=== PATIENT | male | born 1965 | race Asian ===

== ENCOUNTER 2019-05-02 08:12 | Day surgery (SDC) | payer OTHER ==
[~2019-05-02] VITALS: Ht 154.9 cm; Wt 57.0 kg
[2019-05-02] MEDS ORDERED: BENAZEPRIL (08:48)
[2019-05-02] MEDS ORDERED: METFORMIN (08:48)
[2019-05-02] MEDS ORDERED: ATORVASTATIN (08:48)
[2019-05-02] MEDS ORDERED: GLIPIZIDE (08:48)
[2019-05-02 09:03] VITALS: Ht 154.9 cm; Wt 57.0 kg
[2019-05-02 09:21] VITALS: BP 122/173; PULSE 69; RESP 16
--- NOTE | 2019-05-02 09:21 | PREAC ---
Date/Time of Note Date/Time of Note DATE: 05/02/19 TIME: 09:18 Anesthesia Eval and Record Evaluation Time Pre-Procedure Interview DATE: 05/02/19 TIME: 09:18 Age 54 Sex male NPO: 8 hrs Preoperative diagnosis screening Planned procedure colonoscopy Past Medical History Past Medical History: Includes Cardio: HTN, Dyslipidemia Endo: Diabetes Surgery & Anesthesia Issues No known issue Meds Anticoagulation: No Beta Pat within 24 hr: No Reason Beta Pat not given: Pt. not on B-Pat Reported Medications [Atorvastatin] No Conflict Check 05/02/19 [Benazepril] No Conflict Check 05/02/19 [Glipizide] No Conflict Check 05/02/19 [Metformin] No Conflict Check 05/02/19 Meds reviewed: Yes Allergies Coded Allergies: No Known Allergy (Unverified , 05/02/19) Allergies Reviewed: Yes Labs/Studies Labs Reviewed: Reviewed by anesthesiologist test: N/A Pre-procedure Exam Airway: Adequate mouth opening, Adequate thyromental dist Mallampati: Mallampati II Teeth: Normal Lung: Normal Heart: Normal ASA Physical Status ASA physical status: 2 Emergency: None Planned Anesthetic General/MAC: Mask Planned Pain Management Parenteral pain med Pre-operative Attestations Prior to commencing anesthesia and surgery, the patient was re-evaluated, there was verification of: *The patient's identity *The results of appropriate recent lab work and preoperative vital signs *The above evaluation not changing prior to induction *Anesthetic plan, risk benefits, alternative and complications discussed with patient/family; questions answered; patient/family understands, accepts and wishes to proceed. NORI ABRAHAM MD May 02, 2019 09:21
[2019-05-02] MEDS ORDERED: ONDANSETRON 4 MG INJ IV PRN (09:30)
[2019-05-02] MEDS ORDERED: LIDOCAINE 2% (SDV) 5 ML INJ ONE (09:31)
[2019-05-02] MEDS ORDERED: PROPOFOL 40 ML ONE (09:31)
[2019-05-02] MEDS ORDERED: PROPOFOL 20 ML ONE (09:55)
--- NOTE | 2019-05-02 09:58 | PAC ---
Date/Time of Note Date/Time of Note DATE: 05/02/19 TIME: 09:56 Post-Anesthesia Notes Post-Anesthesia Note Last documented vital signs Vital Signs Date Temp Pulse Resp B/P (MAP) Pulse Ox O2 O2 Flow FiO2 Time Delivery Rate 05/02/19 98.1 69 16 122/173 99 Room Air 09:21 (156) Activity: WNL Respiratory function: WNL Cardiovascular function: WNL Mental status: Baseline Pain reasonably controlled: Yes Hydration appropriate: Yes Nausea/Vomiting absent: Yes Comments BP: 100/60 HR: 69 RR: 15 T: 98 SaO2: 99% NORI ABRAHAM MD May 02, 2019 09:58
[2019-05-02 10:22] VITALS: BP 107/69; PULSE 81; RESP 14
== END 2019-05-02 15:09 | disposition home or self-care (01) ==
LOC: GIL 08:12
PROVIDERS: ATTEND Internal Medicine Gastroenterology
DX: Z12.11 Encounter for screening for malignant neoplasm of colon (principal); K64.9 Unspecified hemorrhoids; E11.9 Type 2 diabetes mellitus without complications; I10 Essential (primary) hypertension; E78.5 Hyperlipidemia, unspecified; Z79.84 Long term (current) use of oral hypoglycemic drugs
CPT/HCPCS: 82962